=== PATIENT | female | born 1995 | race Caucasian/White ===

== ENCOUNTER 2021-04-25 18:34 | Inpatient (IN) ==
[2021-04-25 19:36] LABS: Basophils # (auto) 0.02 K/uL (0-0.2); Basophils % (auto) 0.1 %; Eosinophils # (auto) 0.04 K/uL (0-0.5); Eosinophils % (auto) 0.2 %; Hematocrit (blood only) 39.3 % (37-47); Hemoglobin 13.3 g/dL (12.0-16.0); Immature Granulocytes # (auto) 0.04 K/uL (0.00-0.02); Immature Granulocytes % (auto) 0.2 %; Lymphocytes # (auto) 1.04 K/uL (1.2-3.4); Lymphocytes % (auto) 6.1 %; Mean Corpuscular Hemoglobin 28.9 pg (25-34); Mean Corpuscular Hgb Conc 33.8 g/dL (32-36); Mean Corpuscular Volume 85.2 fL (80-100); Mean Platelet Volume 10.2 fL (7.4-10.4); Monocytes # (auto) 0.85 K/uL (0.11-0.59); Neutrophils # (auto) 15.03 K/uL (1.4-6.5); Neutrophils % (auto) 88.4 %; Platelet Count 335 K/uL (130-400); RDW Standard Deviation 40.2 fL (36.4-46.3); Red Blood Count 4.61 M/uL (4.2-5.4); White Blood Count 17.02 K/uL (4.8-10.8)
[2021-04-25] MEDS ORDERED: SODIUM CHLORIDE 0.9% 1000ML 1,000 ML IV ONE (19:52)
[2021-04-25 19:59] LABS: Albumin Globulin Ratio 1.2 (0.9-2); Albumin Level 4.6 gm/dl (3.4-5.0); BUN Creatinine Ratio 25.4 (10-20); Bilirubin,Total 0.5 mg/dl (0.2-1.0); Calcium 9.4 mg/dl (8.5-10.1); Creatinine Clr Calc Pharmacy 151.3 ml/min; Est GFR (African American) 147.6 ml/min; Est GFR (Non-African American) 127.4 ml/min; Globulin 3.7 gm/dl (2.5-4.0); Potassium 3.8 mmol/L (3.5-5.1); Total Protein 8.3 gm/dl (6.0-8.3)
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
[2021-04-25 20:22] LABS: Pregnancy Test, Serum Negative (Negative)
[2021-04-25] MEDS ORDERED: OPTIRAY 320 100ml IV ONE (21:00)
[2021-04-25] MEDS ORDERED: PIPERACILL/TAZOBAC CONSULT ACTIVE PRN (21:58)
[2021-04-25] MEDS ORDERED: PIPERACILLIN/TAZOBACTAM 4.5 GM/120 ML BAG IV ONE (21:58)
--- NOTE | 2021-04-25 22:04 | History & Physical Report ---
Date of Service April 25, 2021 Assessment & Plan (1) Acute appendicitis: Plan: Due to the patient's imaging and clinical presentation we admitted the hospital and proceed as follows: We will tenably plan on performing a laparoscopic, possible open appendectomy with Dr. Enciso this evening. I discussed the risks, benefits and expected postoperative course with the patient. Analgesics be provided Antiemetics will be provided We will provide hydration with IV fluids We will office helper antibiotics in the form of Zosyn We will keep the patient n.p.o. until after her procedure Additional recommendations be forthcoming based on operative findings and her postoperative course She will be a level 1 full code History of Present Illness Chief Complaint: Abdominal pain Primary Care Provider: Alfredo Farias DO This is a 25-year-old female who presented to [facility] emergency department secondary abdominal pain. She noted that the pain began yesterday and was located in the periumbilical region but has subsequently shifted to the right lower quadrant. She denies any nausea vomiting. She denies any fevers, shakes, chills. She denies any prior abdominal surgeries. She does not note any palliative or provocative factors to the pain but due to its persistence she presented to the emergency department. She did note that her most recent oral intake was between 1 and 1:30 PM today. In the emergency department the patient had evidence of an uncomplicated acute appendicitis. Her appendix was dilated and fluid-filled measuring up to 1.2 cm. There is no evidence of perforation. Labs include a CBC her white blood cell count was elevated at 17.0. Hemoglobin, hematocrit, and platelet count were all noted to be normal. Chemistry profile showed sodium, potassium, BUN, were normal. Her creatinine was 0.5. test was noted to be negative. A Covid test is pending. At the time of interview she is resting comfortably in bed she was no distress Allergies Allergy/AdvReac Type Severity Reaction Status Date / Time No Known Allergies Allergy Mild Unverified 04/25/21 20:52 Home Medications Medication Instructions Recorded Confirmed Type No Known Home Medications 04/25/21 04/25/21 History Past Med/Surg History Social History Smoking Status: Never smoker Preferred Language: Nicaraguan Feels Safe at Home: Yes Review of Systems Constitutional: no fever and no chills Eyes: no diplopia Ear, Nose, Mouth, Throat: no ear pain Respiratory: no cough and no dyspnea Cardiovascular: no chest pain Gastrointestinal: + abdominal pain; no nausea and no vomiting Genitourinary: no dysuria Musculoskeletal: no back pain Integumentary: no rash Neurologic: no localized weakness Physical Exam Constitutional: well developed and well nourished; no acute distress Eyes: no conjunctival abnormality ENMT: Ears: no hearing impairment and no external ear abnormality Mouth: no oropharynx abnormality Neck: trachea midline Respiratory: normal respiratory effort, lungs clear to auscultation Cardiovascular: Rate/Rhythm: regular rate and regular rhythm Gastrointestinal (Abdomen): Abdomen is soft and nondistended. There is some slight rebound tenderness. There is pain with palpation over McBurney's point in the right lower quadrant. Musculoskeletal: No calf tenderness Skin: no rashes Neurologic: moves all extremities Psychiatric: A+Ox3, euthymic affect Results & Data Results & Data ([facility]) Vital Signs (Past 12 Hours) Vital Signs Temp Pulse Resp BP Pulse Ox 04/25/21 18:40 37 C 105 H 20 162/96 H 97 Supervising Physician Co-Signing Physician Notes Dr. Mckay seen in the emergency room Work-up consistent with acute appendicitis Patient is for laparoscopic appendectomy possible open operation PG Care Time/CCT Total # of Minutes Spent Total Time Spent with Patient: Total time spent is greater than 50% in coordination of care (as documented) at patient's floor/unit and/or counseling patient: Coding Level of Care Code INT OBSERVATION CARE 70M LVL 3 Diagnoses Acute appendicitis K35.80
[2021-04-25] MEDS ORDERED: LACTATED RINGER'S 1,000 ML IV SCH (22:15)
[2021-04-25] MEDS ORDERED: PHENYLEPHRINE 100MCG/ML 5ML SYR IV PRN (22:45)
[2021-04-25] MEDS ORDERED: MEPERIDINE HCL 25 MG/ML CARP/VIAL IV PRN (22:45)
[2021-04-25] MEDS ORDERED: fentaNYL citrate 100 MCG/2 ML VIAL IV PRN (22:45)
[2021-04-25] MEDS ORDERED: ePHEDrine sulfate 50 MG/ML AMP IV PRN (22:45)
[2021-04-25] MEDS ORDERED: ONDANSETRON INJ 2 MG/ML 2 ML VIAL IV PRN (22:45)
[2021-04-25] MEDS ORDERED: HYDROmorphone INJ 1 MG/ML SYRINGE IV PRN (22:45)
[2021-04-25] MEDS ORDERED: ATROPINE SULFATE 0.1 MG/ML 10ML SYR IV PRN (22:45)
[2021-04-25] MEDS ORDERED: LABETALOL HCL IV 5 MG/ML 20ML IV PRN (22:45)
--- NOTE | 2021-04-25 22:49 | Anesthesiology Consultation ---
Date of Service April 25, 2021 Assessment & Plan (1) Encounter for pre-operative examination: Chart Review Chart Review: Acceptable Risk for Surgery and Patient NOT seen in Pre Admission Testing Consults Requested none History Surgery Operation Date: 04/25/21 23:59 Proposed Procedures p Laparoscopic Appendectomy - Fernando Enciso MD, FACS Height/Weight Height: 5 ft 2 in Weight: 89.2 kg Allergies Allergy/AdvReac Type Severity Reaction Status Date / Time No Known Allergies Allergy Mild Unverified 04/25/21 20:52 Medications Home Medications Medication Instructions Recorded Confirmed Last Taken No Known Home Medications 04/25/21 04/25/21 Unknown Past Medical History Medical History Obesity Social History Smoking Status: Never smoker Physical Exam Vital Signs Last Vital Signs Temp 37 C 04/25/21 18:40 Pulse 105 H 04/25/21 18:40 Resp 20 04/25/21 18:40 BP 162/96 H 04/25/21 18:40 Pulse Ox 97 04/25/21 18:40 Testing Laboratory Results 04/25/21 19:16 04/25/21 19:16
[2021-04-25] MEDS ORDERED: BUPIVACAINE 0.5 % 5 MG/1 ML MPF 30ML VIAL ONE (22:50)
[2021-04-25 22:56] LABS: Appearance Urine Clear (Clear); Bilirubin Urine Negative (Negative); Blood Urine Negative (Negative); Color Urine Yellow; Glucose Urine UA Negative (Negative); Ketones Urine Negative (Negative); Leukocyte Esterase Urine Negative (Negative); Nitrite Urine Negative (Negative); Protein Urine Negative (Negative); Specific Gravity Urine > 1.045 (1.000-1.030); Urobilinogen Urine Negative (Negative); pH Urine 7.5 (4.5-7.5)
[2021-04-25] MEDS ORDERED: MIDAZOLAM HCL 1 MG/ML 2ML VIAL ONE (22:56)
[2021-04-25] MEDS ORDERED: fentaNYL citrate 100 MCG/2 ML VIAL ONE (22:56)
[2021-04-25] MEDS ORDERED: SUCCINYLCHOLINE 100MG/5ML SYR IV ONE (23:26)
[2021-04-25] MEDS ORDERED: PROPOFOL IV EMULSION 10 MG/ML 20 ML VIAL IV ONE (23:26)
[2021-04-25] MEDS ORDERED: ROCURONIUM BROMIDE 10 MG/ML 5 ML VIAL IV ONE (23:27)
[2021-04-25] MEDS ORDERED: DEXAMETHASONE SOD INJ 4 MG/ML VIAL ONE (23:27)
[2021-04-25] MEDS ORDERED: NEOSTIGMINE METHYLSULFATE 1 MG/ML 10ML VIAL ONE (23:27)
[2021-04-25] MEDS ORDERED: GLYCOPYRROLATE 0.2 MG/ML VIAL ONE (23:27)
[2021-04-25] MEDS ORDERED: ONDANSETRON INJ 2 MG/ML 2 ML VIAL ONE (23:27)
[2021-04-25] MEDS ORDERED: LIDOCAINE 2% 2 ML VIAL/AMP(20MG/ML) INFIL ONE (23:28)
[2021-04-25] MEDS ORDERED: ESMOLOL HCL INJ 10 MG/ML 10ML VIAL IV ONE (23:31)
[2021-04-25] MEDS ORDERED: ACETAMINOPHEN 1,000 MG/100 ML VIAL IV ONE (23:51)
--- NOTE | 2021-04-25 23:51 | Post Operative Brief Note ---
PG Immediate Post Op with CF Date of Surgery April 25, 2021 Pre & Post Diagnosis Operation Date: 04/25/21 23:59 Pre-Op Diagnosis: Acute Appendicitis Post-Op Diagnosis: Acute Appendicitis I identified the patient and participated in the time-out.: Yes Procedure Operation Date: 04/25/21 23:59 Actual Procedures p Laparoscopic Appendectomy(Not Applicable) - Fernando Enciso MD, FACS Surgeon Fernando Enciso MD, FACS Fish Header Dionicio Mendiola Estimated Blood Loss 10 Findings Consistent with Post-Op Diagnosis Acute appendicitis with exudate Specimens Specimen Description: A.) Appendix
--- NOTE | 2021-04-26 00:29 | Anesthesiology Progress Note ---
Date of Service April 26, 2021 Anesthesia Post Procedure Vital Signs Vital Signs: Temp Pulse Resp BP Pulse Ox 04/25/21 18:40 37 C 105 H 20 162/96 H 97 Transfer of Care Handoff Completed per policy Notes Mental Status: alert / awake / arousable Patient Amnestic to Procedure: Yes Nausea / Vomiting: adequately controlled Pain: adequately controlled Airway Patency, RR, SpO2: stable & adequate BP & HR: stable & adequate Hydration State: stable & adequate Anesthetic Complications: no major complications apparent and Pt Satisfied with anesthetic care Notes: The patient is awake and comfortable. Her vital signs are stable in recovery but have not yet been entered into [facility] by the nurse.
[2021-04-26] MEDS ORDERED: oxyCODONE HCL IR 5 MG TAB (IMMEDIATE RELEASE) PO PRN (01:05)
[2021-04-26] MEDS ORDERED: HYDROmorphone INJ 0.5 MG/0.5 ML SYR IV PRN ×2 (01:05)
[2021-04-26] MEDS ORDERED: PROMETHAZINE HCL 12.5 MG in SODIUM CHLORIDE 0.9% 50 ML IV PRN (01:05)
[2021-04-26] MEDS ORDERED: ONDANSETRON INJ 2 MG/ML 2 ML VIAL IV PRN (01:05)
[2021-04-26] MEDS ORDERED: IBUPROFEN 600 MG TAB PO PRN (01:05)
[2021-04-26] MEDS ORDERED: ACETAMINOPHEN 325 MG TAB PO PRN (01:05)
--- NOTE | 2021-04-26 02:16 | Operative Report (OR) ---
DATE OF OPERATION: 04/25/2021. NAME OF OPERATION: Laparoscopic appendectomy. PREOPERATIVE DIAGNOSIS: Acute appendicitis. POSTOPERATIVE DIAGNOSIS: Acute appendicitis. STAFF SURGEON: Fernando Enciso MD. JEWEL HOLE GAUGER: ALESSANDRA Hargrove ANESTHESIA: General. DESCRIPTION OF PROCEDURE: The patient was brought in the operating room and placed on the operating table in supine position. Pneumatic stockings and orogastric tube were placed. Her abdomen was prep ped and draped in the usual fashion. My catering assistant helped with prepping, draping, removal of the appe ndix and closure of the wounds. An incision was made just above the umbilicus, carrying dissection d own to the fascia, placing a Veress needle producing pneumoperitoneum, placing a 5-mm port. A 5-mm c amera was passed under visualization. A second 5-mm port was placed in the suprapubic area and then 1 2-mm port placed in left lower quadrant. The omentum was adherent acutely to the appendix. It was taken down and then the appendix was retrac delvis. It was inflamed and thickened with an exudate. No abscess was present. No cloudy fluid. Base of the appendix was transected using an Endo-FERNANDO stapler brown load. A second load was used to trans ect the mesentery. The appendix was placed in an Endobag and then removed through the left lower stevie drant port site. After appropriate irrigation, hemostasis, all ports were removed. Fascia in the left lower quadrant closed using interrupted 0 Vicryl suture. The skin was reapproximated using subcuticular 4-0 Monocry l with Dermabond at the umbilicus and suprapubic area, left lower quadrant incision closed using Ster i-Strips. The patient was transferred to recovery area in stable condition. Job ID: [id number]
[2021-04-26] MEDS: PIPERACILLIN/TAZOBACTAM 4.5 GM in DEXTROSE 5% 100 ML IV SCH ×2 (03:46→11:47)
--- NOTE | 2021-04-26 06:32 | Surgery Progress Note ---
Date of Service April 26, 2021 Assessment & Plan (1) S/P laparoscopic appendectomy: Plan: Patient with acute appendicitis with exudate She is doing relatively well Currently on IV antibiotics Continue IV antibiotics for now and sent home on oral antibiotics Monitor progress Admission and Anticipated Discharge Date Admission Date: April 25, 2021 Results & Data ([facility]) Vital Signs (Past 12 Hours) Vital Signs Temp Pulse Pulse Pulse Pulse Resp BP 04/26/21 04:10 36.8 C 89 16 04/26/21 02:59 37.0 C 96 H 16 04/26/21 02:05 37.2 C 97 H 14 04/26/21 01:33 37.0 C 84 14 04/26/21 01:21 37.2 C 80 18 04/26/21 01:00 37.2 C 80 18 04/26/21 00:50 90 16 04/26/21 00:41 88 20 04/26/21 00:31 88 24 04/26/21 00:21 75 24 04/26/21 00:11 37.4 C 82 24 04/25/21 18:40 37 C 105 H 20 162/96 H BP BP Pulse Ox 04/26/21 04:10 114/74 94 04/26/21 02:59 126/74 93 04/26/21 02:05 125/78 92 04/26/21 01:33 111/68 94 04/26/21 01:21 115/62 94 04/26/21 01:00 115/62 94 04/26/21 00:50 127/81 95 04/26/21 00:41 140/75 94 04/26/21 00:31 146/79 H 96 04/26/21 00:21 141/83 H 100 04/26/21 00:11 141/79 H 98 04/25/21 18:40 97 PG Care Time/CCT Total # of Minutes Spent Total Time Spent with Patient: Total time spent is greater than 50% in coordination of care (as documented) at patient's floor/unit and/or counseling patient: Coding Level of Care Code None Diagnoses S/P laparoscopic appendectomy Z90.49
[2021-04-26] MEDS ORDERED: HYDROCODONE/ACETAMOPHEN 5/325MG TAB PO PRN (06:33)
--- NOTE | 2021-04-26 07:46 | CT Scan Report ---
CT SCAN OF THE ABDOMEN AND PELVIS WITH IV CONTRAST CLINICAL HISTORY: Right-sided abdominal pain. COMPARISON STUDY: Pelvic radiograph dated 12/17/2006 TECHNIQUE: Following the IV administration of 94 cc of Optiray 320, CT scan of the abdomen and pelvi s is performed from the lung bases to the proximal femora. Images are reviewed in the axial, sagittal , and coronal planes. IV contrast was administered without complication. A dose lowering technique wa s utilized adhering to the principles of ALARA. CT DOSE: 580.59 mGy.cm FINDINGS: Lung bases: The heart is normal in size and without pericardial effusion. The lung bases are clear no ting mild bibasilar atelectasis. Liver: The contrast-enhanced liver is normal in size, contour, and attenuation. There is no intrahepa tic biliary ductal dilatation. The hepatic veins and portal veins are patent. Gallbladder: Unremarkable. Spleen: Normal in size and attenuation. Pancreas: Unremarkable. Adrenal glands: Unremarkable. Kidneys: The contrast enhanced kidneys are normal in size and without hydronephrosis. The kidneys enh ance symmetrically. Abdominal vasculature: The abdominal aorta is normal in course and caliber. Bowel: There is no bowel obstruction. The appendix is dilated and fluid-filled, measuring up to 1.3 cm. This is best seen on image #334. The appendiceal wall is thickened and hyperemic and there is per iappendiceal inflammation. Findings are consistent with acute appendicitis. There is no organized flu id collections suggest abscess. Peritoneum: There is no intraperitoneal free air or abdominal ascites. There are fat-containing umbil ical and supraumbilical hernias. Lymphadenopathy: None. Pelvic viscera: The bladder, uterus, and adnexa are normal as visualized. Small ovarian follicles are noted. There is trace free fluid in the cul-de-sac. Skeletal structures: No lytic or blastic lesions are seen. IMPRESSION: 1. Findings are consistent with acute appendicitis. 2. There is no evidence of abscess or perforation. ACT 112: Negative or not required by law. Electronically signed by: Carl George M.D. 04/26/2021 7:45 AM
--- NOTE | 2021-05-04 21:10 | Discharge Summary ---
Date of Service May 04, 2021 Admission HPI Per Admitting Provider This is a 25-year-old female who presented to [facility] emergency department secondary abdominal pain. She noted that the pain began yesterday and was located in the periumbilical region but has subsequently shifted to the right lower quadrant. She denies any nausea vomiting. She denies any fevers, shakes, chills. She denies any prior abdominal surgeries. She does not note any palliative or provocative factors to the pain but due to its persistence she presented to the emergency department. She did note that her most recent oral intake was between 1 and 1:30 PM today. In the emergency department the patient had evidence of an uncomplicated acute appendicitis. Her appendix was dilated and fluid-filled measuring up to 1.2 cm. There is no evidence of perforation. Labs include a CBC her white blood cell count was elevated at 17.0. Hemoglobin, hematocrit, and platelet count were all noted to be normal. Chemistry profile showed sodium, potassium, BUN, were normal. Her creatinine was 0.5. test was noted to be negative. A Covid test is pending. At the time of interview she is resting comfortably in bed she was no distress Discharge Data Procedures Performed Operation Date: 04/25/21 23:59 Actual Procedures p Laparoscopic Appendectomy(Not Applicable) - Fernando Enciso MD, [facility] Hospital Course (1) S/P laparoscopic appendectomy: Patient was admitted to [facility] on 04/25/2021 secondary to abdominal pain. Imaging revealed patient had an acute appendicitis. She was taken to the operating room where she underwent a laparoscopic appendectomy by Dr. Enciso. Her postoperative course was uneventful and she was discharged home on postop day #1 which was 04/26/2021. She was instructed on appropriate wound care, diet, and activity. She was instructed to follow-up with Dr. Enciso in 1 to 2 weeks. Coding Level of Care Code None Diagnoses S/P laparoscopic appendectomy Z90.49
== END 2021-04-26 15:20 | disposition home or self-care (01) | DRG 343 ==
LOC: ED 18:34 → OR 23:30 → 3N 23:55
DX: K35.80 Unspecified acute appendicitis